=== PATIENT | male | born 1960 | race Two or more races ===

== ENCOUNTER 2016-10-20 18:31 | Emergency (ER) | payer BC ==
[~2016-10-20] VITALS: Ht 177.8 cm; Wt 72.6 kg
[2016-10-20 18:46] VITALS: BP 119/95
[2016-10-20 19:30] VITALS: BP 111/69
[2016-10-20 19:39] LABS: BASOPHILS % (AUTO) 0.5 % (0.0-2.0); EOSINOPHILS % (AUTO) 0.7 % (0.0-3.0); LYMPHOCYTES % (AUTO) 17.2 % (20.0-45.0); MEAN CORPUSCULAR HEMOGLOBIN 32.7 PG (27.0-31.0); MEAN CORPUSCULAR HGB CONC 36.3 G/DL (32.0-36.0); MEAN CORPUSCULAR VOLUME 90 FL (80-99); MEAN PLATELET VOLUME 7.7 FL (6.5-10.1); MONOCYTES % (AUTO) 4.3 % (1.0-10.0); NEUTROPHILS % (AUTO) 77.4 % (45.0-75.0); PLATELET COUNT 134 K/UL (150-450); RED BLOOD COUNT 5.16 M/UL (4.70-6.10); RED CELL DISTRIBUTION WIDTH 12.2 % (11.6-14.8); WHITE BLOOD COUNT 11.3 K/UL (4.8-10.8)
[2016-10-20 20:06] LABS: TROPONIN I < 0.30 ng/mL (<=0.30)
[2016-10-20 20:08] VITALS: BP 121/69
[2016-10-20 20:09] LABS: ALBUMIN/GLOBULIN RATIO 1.4 (1.0-2.7); CALCIUM 8.5 mg/dL (8.6-10.2); CREATININE 1.3 mg/dL (0.7-1.2); GLOMERULAR FILTRATION RATE 56.7 mL/min (>60); POTASSIUM 3.4 mEQ/L (3.4-4.9); TOTAL PROTEIN 7.1 g/dL (6.6-8.7)
[2016-10-20 20:12] LABS: APPEARANCE,URINE CLEAR; KETONES,URINE NEGATIVE (NEGATIVE); LEUKOCYTE ESTERASE ,URINE NEGATIVE (NEGATIVE); NITRITE,URINE NEGATIVE (NEGATIVE); PH,URINE 6 (4.5-8.0); PROTEIN,URINE 2+ (NEGATIVE); UROBILINOGEN,URINE NORMAL MG/DL (0.0-1.0)
[2016-10-20 20:19] LABS: CKMB 2.5 ng/mL (< 6.7)
[2016-10-20] MEDS ORDERED: IBUPROFEN600 MG ORAL (20:39)
[2016-10-20] MEDS ORDERED: CYCLOBENZAPRINE10 MG ORAL (20:39)
[2016-10-20 20:43] LABS: RBC,URINE 0-2 /HPF (0 - 0); WBC,URINE 0-2 /HPF (0 - 0)
[2016-10-20 20:46] VITALS: BP 111/66
--- NOTE | 2016-10-20 21:47 | Emergency Room Report ---
History of Present Illness General Chief Complaint: Seizure Source: Patient, Family Member, EMS Present Illness HPI 56-year-old male presents ED her evaluation. Family at bedside states that patient had a seizure at home. Patient states he was in the bathroom because he ate some bad fish. States he needed to throw up and while in the bathroom he felt dizzy and laid on the ground. Seizure unwitnessed. Patient is not sure if he had a seizure. Denies LOC. Denies head injury. He states he did have a possible seizure a few years ago. Patient had a workup which included EEG and CT which were negative. Patient is not on seizure medications at this time. Patient states he has chills and feels weak. Denies recent antibiotic use. Denies recent travel. No other aggravating or relieving factors. Denies any other associated symptoms Allergies: Coded Allergies: No Known Allergies (Unverified , 10/20/16) Patient History Past Medical History: seizures Past Surgical History: none Pertinent Family History: none Social History: Denies: alcohol use, drug use, smoking Immunizations: UTD Reviewed Nursing Documentation: PMH: Agreed, PSxH: Agreed Nursing Documentation-PMH Past Medical History: No History, Except For Hx Seizures: Yes - lst 2 yrs ago Review of Systems All Other Systems: negative except mentioned in HPI Physical Exam Vital Signs Date Time Temp Pulse Resp B/P Pulse Ox O2 Delivery O2 Flow Rate FiO2 10/20/16 18:27 16 119/95 96 Room Air 10/20/16 18:46 86 10/20/16 19:30 97.6 Sp02 EP Interpretation: reviewed, normal General Appearance: no apparent distress, alert, GCS 15, non-toxic Head: normocephalic, atraumatic Eyes: bilateral eye PERRL, bilateral eye normal inspection ENT: hearing grossly normal, normal pharynx, no angioedema, normal voice Neck: full range of motion, supple/symm/no masses Respiratory: chest non-tender, lungs clear, normal breath sounds, speaking full sentences Cardiovascular #1: regular rate, rhythm, no edema Cardiovascular #2: 2+ carotid (R), 2+ carotid (L), 2+ radial (R), 2+ radial (L) , 2+ dorsalis pedis (R), 2+ dorsalis pedis (L) Gastrointestinal: normal bowel sounds, non tender, soft, non-distended, no guarding, no rebound Rectal: deferred Genitourinary: normal inspection, no CVA tenderness Musculoskeletal: back normal, gait/station normal, normal range of motion, non- tender Neurologic: alert, oriented x3, responsive, motor strength/tone normal, sensory intact, speech normal Psychiatric: judgement/insight normal, memory normal, mood/affect normal, no suicidal/homicidal ideation Reflexes: 3+ bicep (R), 3+ bicep (L), 3+ tricep (R), 3+ tricep (L), 3+ knee (R) , 3+ knee (L) Skin: normal color, no rash, warm/dry, well hydrated Lymphatic: no adenopathy Medical Decision Making Diagnostic Impression: Primary Impression: Vasovagal syncope Additional Impression: Gastroenteritis ER Course Hospital Course 56-year-old M presents to ED with dizziness with vomiting and diarrhea. Chills. History of seizure differential diagnosis: gastritis, dehydration, arrythmia, gastroenteritis Clinical course Patient placed on stretcher. On equipment monitor phototypesetting. After initial history and physical I ordered labs, IV fluids, EKG Labs - minimal leukocytosis, electrolytes ok, Trop negative Upon reassessment, patient states symptoms has improved. findings consistent with gastroenteritis It is unclear whether patient actually had a seizure since unwitnessed. No head injury. Patient recalls everything. She also had workup in the past which showed a normal EEG. At this time I believe patient can be discharged to home recommend neurology followup I feel this is a highly complex case requiring extensive working including EKG/ Rhythm strip, Xray/CT/US, Blood/urine lab work, repeat exams while in ED, and administration of strong opiates/narcotics for pain control, admission to hospital or close patient follow up. Diagnosis - gastroenteritis, vasovagal syncope Stable and discharged to home. Followup with PMD. Return to ED if symptoms recur or worsen Labs Test 10/20/16 19:20 10/20/16 19:30 White Blood Count 11.3 K/UL (4.8-10.8) Red Blood Count 5.16 M/UL (4.70-6.10) Hemoglobin 16.9 G/DL (14.2-18.0) Hematocrit 46.5 % (42.0-52.0) Mean Corpuscular Volume 90 FL (80-99) Mean Corpuscular Hemoglobin 32.7 PG (27.0-31.0) Mean Corpuscular Hemoglobin Concent 36.3 G/DL (32.0-36.0) Red Cell Distribution Width 12.2 % (11.6-14.8) Platelet Count 134 K/UL (150-450) Mean Platelet Volume 7.7 FL (6.5-10.1) Neutrophils (%) (Auto) 77.4 % (45.0-75.0) Lymphocytes (%) (Auto) 17.2 % (20.0-45.0) Monocytes (%) (Auto) 4.3 % (1.0-10.0) Eosinophils (%) (Auto) 0.7 % (0.0-3.0) Basophils (%) (Auto) 0.5 % (0.0-2.0) Sodium Level 140 mEQ/L (135-145) Potassium Level 3.4 mEQ/L (3.4-4.9) Chloride Level 99 mEQ/L (98-107) Carbon Dioxide Level 21 mEQ/L (20-30) Anion Gap 20 (5-15) Blood Urea Nitrogen 20 mg/dL (7-23) Creatinine 1.3 mg/dL (0.7-1.2) Estimat Glomerular Filtration Rate 56.7 mL/min (>60) Glucose Level 150 mg/dL (74-106) Calcium Level 8.5 mg/dL (8.6-10.2) Total Bilirubin 0.4 mg/dL (0.0-1.2) Aspartate Amino Transf (AST/SGOT) 36 U/L (5-40) Alanine Aminotransferase (ALT/SGPT) 21 U/L (3-41) Alkaline Phosphatase 69 U/L (40-129) Total Creatine Kinase 133 U/L (38-174) Creatine Kinase MB 2.5 ng/mL (< 6.7) Creatine Kinase MB Relative Index 1.8 Troponin I < 0.30 ng/mL (<=0.30) Pro-B-Type Natriuretic Peptide 9 pg/mL (0-125) Total Protein 7.1 g/dL (6.6-8.7) Albumin 4.2 g/dL (3.5-5.2) Globulin 2.9 g/dL Albumin/Globulin Ratio 1.4 (1.0-2.7) Urine Color Pale yellow Urine Appearance Clear Urine pH 6 (4.5-8.0) Urine Specific [place] 1.010 (1.005-1.035) Urine Protein 2+ (NEGATIVE) Urine Glucose (UA) Negative (NEGATIVE) Urine Ketones Negative (NEGATIVE) Urine Occult Blood Negative (NEGATIVE) Urine Nitrite Negative (NEGATIVE) Urine Bilirubin Negative (NEGATIVE) Urine Urobilinogen Normal MG/DL (0.0-1.0) Urine Leukocyte Esterase Negative (NEGATIVE) Urine RBC 0-2 /HPF (0 - 0) Urine WBC 0-2 /HPF (0 - 0) Urine Squamous Epithelial Cells None /LPF (NONE/OCC) Urine Bacteria None /HPF (NONE) EKG Diagnostic Results Rate: normal Rhythm: NSR ST Segments: no acute changes ASA given to the pt in ED: No Rhythm Strip Diag. Results EP Interpretation: yes Rhythm: NSR, no PVC's, no ectopy Last Vital Signs Date Time Temp Pulse Resp B/P Pulse Ox O2 Delivery O2 Flow Rate FiO2 10/20/16 20:46 97 22 111/66 98 Room Air 10/20/16 19:30 97.6 Status: improved Disposition: HOME, SELF-CARE Condition: Stable Scripts Cyclobenzaprine Hcl* (FLEXERIL*) 10 Mg Tablet 10 MG ORAL TID Y for Muscle Spasm, #20 TAB Prov: VIRGILIO AYALA M.D. 10/20/16 Ibuprofen* (MOTRIN*) 600 Mg Tablet 600 MG ORAL Q8H Y for For Pain, #30 TAB 0 Refills Prov: VIRGILIO AYALA M.D. 10/20/16 Patient Instructions: Vasovagal Syncope, Adult VIRGILIO AYALA M.D. Oct 20, 2016 21:47
--- NOTE | 2016-10-21 10:59 | Diagnostic Imaging Report ---
Indication: SYNCOPE Technique: One view of the chest Comparison: none Findings: Lungs and pleural spaces are clear. Heart size is normal. Impression: No acute process
--- NOTE | 2016-10-25 22:41 | Cardiology Report ---
APPROVED REPORT EKG Measurement Heart [id number] Normal sinus rhythm Normal ECG
== END 2016-10-20 21:03 | disposition home or self-care (01) ==
LOC: EDBD 18:31 → EMR 18:53
DX: R55 Syncope and collapse (principal); K52.9 Noninfective gastroenteritis and colitis, unspecified
CPT/HCPCS: 36415; 71010; 80053; 81003; 82550; 82553; 83880; 84484; 85025; 93005; 96360